=== PATIENT | female | born 1945 | race Caucasian/White ===

== ENCOUNTER 2024-08-01 20:02 | Inpatient (IN) | payer MEDICARE, BC ==
[~2024-08-01] VITALS: Ht 167.6 cm; Wt 58.1 kg
[~2024-08-01 20:02] MED LIST: CALC-1026 PO
[2024-08-01] MEDS ORDERED: PIPERACI/TAZO 3.375GM/D5W 50ML PB IV ONE (20:39)
[2024-08-01] MEDS ORDERED: VANCOMYCIN 1 GM /D5W 250 ML PB IV ONE (20:39)
[2024-08-01] MEDS ORDERED: AZITHROMYCIN 500 MG VIAL ONE (20:39)
[2024-08-01] MEDS: IV NS 0.9% 1,000 ML BAG IV ONE (20:50)
[2024-08-01] MEDS: PIPERACILLIN /TAZOBACTAM 3.375 G in IV D5W 50 ML IV ONE (20:51)
[2024-08-01 20:53] LABS: BASOPHILS # (AUTO) 0.1 K/uL (0.0-0.2); BASOPHILS % (AUTO) 0.3 % (0.0-2.0); EOSINOPHILS % (AUTO) 0.1 % (0.0-6.0); HEMATOCRIT 32 % (33-45); HEMOGLOBIN 10.4 g/dL (11.5-14.8); LYMPHOCYTES # (AUTO) 0.4 K/uL (0.8-4.8); LYMPHOCYTES % (AUTO) 1.7 % (20.0-44.0); MEAN CORPUSCULAR HEMOGLOBIN 30 PG (26.0-33.0); MEAN CORPUSCULAR HGB CONC 32 g/dl (31.0-36.0); MEAN CORPUSCULAR VOLUME 94 fL (82-100); MONOCYTES % (AUTO) 4.1 % (2.0-12.0); NEUTROPHILS # (AUTO) 22.7 K/uL (1.8-8.9); NEUTROPHILS % (AUTO) 93.8 % (43.0-81.0); PLATELET COUNT (AUTO) 715 K/uL (150-450); RED BLOOD CELL COUNT(AUTO) 3.42 MIL/uL (4.0-5.2); RED CELL DISTRIBUTION WIDTH 17.9 % (11.5-15.0); WHITE BLOOD COUNT (AUTO) 24.2 K/uL (4.3-11.0)
[2024-08-01 21:06] LABS: INR 1.32 (0.91-1.10); PARTIAL THROMBOPLASTIN TIME 37.9 SEC (24.3-34.3); PROTHROMBIN TIME 13.7 SECS (9.2-11.1)
[2024-08-01 21:10] LABS: ALANINE AMINOTRANSFERASE 22 U/L (12-78); ALBUMIN 1.6 g/dL (3.4-5.0); ALKALINE PHOSPHATASE 96 U/L (46-116); ASPARTATE AMINOTRANSFERASE 24 U/L (15-37); BILIRUBIN,DIRECT 0.1 mg/dL (0.0-0.2); BILIRUBIN,TOTAL 0.3 mg/dL (0.2-1.0); CARBON DIOXIDE 26 mmol/L (21-32); CHLORIDE 103 mmol/L (98-107); CREATININE 1.1 mg/dL (0.6-1.3); GLUCOSE 168 mg/dL (74-106); POTASSIUM 3.9 mmol/L (3.5-5.1); SODIUM SERUM 138 mmol/L (136-145); TOTAL PROTEIN, SERUM 4.9 g/dL (6.4-8.2); UREA NITROGEN, BLOOD 24 mg/dL (7-18)
[2024-08-01] MEDS: AZITHROMYCIN 500 MG in IV D5W 250 ML IV ONE (21:11)
[2024-08-01 21:14] LABS: LACTIC ACID 3.3 mmol/L (0.4-2.0)
[2024-08-01] MEDS ORDERED: ACETAMINOPHEN 325 MG TABLET PO PRN (22:00)
[2024-08-01] MEDS ORDERED: ACETAMINOPHEN 650 MG/SUPP.RECT RC PRN (22:00)
[2024-08-01] MEDS ORDERED: Z GUARD REMEDY 4 OZ OINT TP PRN (22:00)
[2024-08-01] MEDS ORDERED: ONDANSETRON HCL/PF 4 MG/2 ML VIAL IVP PRN (22:00)
[2024-08-01] MEDS ORDERED: MAG HYDROX/AL HYDROX/SIMETH 30 ML UDC PO PRN (22:00)
[2024-08-01] MEDS: VANCOMYCIN 1 GM in IV D5W 250 ML IV ONE (22:15)
[2024-08-01] MEDS ORDERED: PIPERACILLIN /TAZOBACTAM 3.375 G in IV NS 0.9% 50 ML IV ONE (23:00)
[2024-08-01 23:10] LABS: APPEARANCE,URINE SLIGHTLY CLOUDY (CLEAR); BILIRUBIN,URINE NEGATIVE (NEGATIVE); BLOOD, URINE TRACE-INTA Ery/uL (NEGATIVE); COLOR,URINE YELLOW (YELLOW); KETONES,URINE NEGATIVE (NEGATIVE); LEUKOCYTE ESTERASE ,URINE 1+ (NEGATIVE); NITRITE, URINE NEGATIVE (NEGATIVE); PROTEIN,URINE NEGATIVE (NEGATIVE); UGLUCOSE NEGATIVE (NEGATIVE); UROBILINOGEN,URINE 0.2 EU/dL (0.2)
[2024-08-01 23:43] LABS: ADD URINE CULTURE YES; BACTERIA,URINE Moderate /HPF (None Seen); RBC,URINE 0-2 /HPF (0-2); SQUAMOUS EPITHELIAL CELL,UR Moderate /HPF (None Seen); WBC,URINE 21-50 /HPF (0-3)
[2024-08-02] VITALS (7 sets, daily range): BP systolic 91–116; BP diastolic 44–57; TEMP 97–99.1; O2SAT 93–100
[2024-08-02] MEDS: IV LR 1000 ML 1,000 ML IV PRN (01:26)
[2024-08-02] MEDS: TRAZODONE 50 MG TABLET PO PRN (01:37)
[2024-08-02] MEDS: ZOLPIDEM TARTRATE 5 MG TABLET PO ONE (02:03)
[2024-08-02] MEDS: TEMAZEPAM 15 MG CAPSULE PO ONE (02:03)
[2024-08-02] MEDS ORDERED: PIPERACI/TAZO 3.375GM/D5W 50ML PB IV ONE (05:08)
[2024-08-02] MEDS: ZOSYN IVPB 3.375 G in IV D5W 50ml IV ONE (05:13)
[2024-08-02] MEDS: PANTOPRAZOLE 40 MG TABLET.DR PO SCH (07:30)
[2024-08-02 07:55] LABS: CALCIUM, SERUM 7.1 mg/dL (8.5-10.1); CREATININE 0.6 mg/dL (0.6-1.3); PHOSPHORUS 3.5 mg/dL (2.5-4.9); POTASSIUM 3.2 mmol/L (3.5-5.1)
[2024-08-02 08:10] LABS: THYROID STIMULATING HORMONE 1.19 uIU/mL (0.358-3.74)
[2024-08-02] MEDS ORDERED: POLY17PO4 PO (08:38)
[2024-08-02] MEDS ORDERED: ASPI-1169 PO (08:38)
[2024-08-02] MEDS ORDERED: DOXE10CA PO (08:38)
[2024-08-02] MEDS ORDERED: LIDO1ADH82 TP (08:38)
[2024-08-02] MEDS ORDERED: [UNRECOGNIZED DRUG - OTHER] TP (08:38)
[2024-08-02] MEDS ORDERED: ONDA4TAB11 PO (08:38)
[2024-08-02] MEDS ORDERED: SENN-261 PO (08:38)
[2024-08-02] MEDS ORDERED: MULT-447 PO (08:38)
[2024-08-02] MEDS ORDERED: ESZO1TAB11 PO (08:38)
[2024-08-02] MEDS ORDERED: ACET-868 PO (08:38)
[2024-08-02] MEDS ORDERED: TRAZ150T75 PO (08:38)
[2024-08-02] MEDS ORDERED: MELA5TAB PO (08:38)
[2024-08-02] MEDS ORDERED: L. A1TAB10 PO (08:38)
[2024-08-02] MEDS ORDERED: METH-647 PO (08:38)
[2024-08-02] MEDS ORDERED: PRUC1TAB PO (08:38)
[2024-08-02] MEDS ORDERED: SIME80TA15 PO (08:38)
[2024-08-02] MEDS ORDERED: LEVO25TA7 PO (08:38)
[2024-08-02 08:57] LABS: MAGNESIUM 1.2 mg/dL (1.8-2.4)
[2024-08-02 10:49] LABS: BASOPHILS % (AUTO) 0.1 % (0.0-2.0); EOSINOPHILS # (AUTO) 0.1 K/uL (0.0-0.7); EOSINOPHILS % (AUTO) 0.7 % (0.0-6.0); HEMATOCRIT 26 % (33-45); HEMOGLOBIN 8.4 g/dL (11.5-14.8); LYMPHOCYTES # (AUTO) 1.8 K/uL (0.8-4.8); LYMPHOCYTES % (AUTO) 10.4 % (20.0-44.0); MEAN CORPUSCULAR HEMOGLOBIN 32 PG (26.0-33.0); MEAN CORPUSCULAR HGB CONC 32 g/dl (31.0-36.0); MEAN CORPUSCULAR VOLUME 99 fL (82-100); MONOCYTES % (AUTO) 5.9 % (2.0-12.0); NEUTROPHILS # (AUTO) 14.6 K/uL (1.8-8.9); NEUTROPHILS % (AUTO) 82.9 % (43.0-81.0); PLATELET COUNT (AUTO) 450 K/uL (150-450); RED BLOOD CELL COUNT(AUTO) 2.66 MIL/uL (4.0-5.2); RED CELL DISTRIBUTION WIDTH 18.4 % (11.5-15.0); WHITE BLOOD COUNT (AUTO) 17.6 K/uL (4.3-11.0)
[2024-08-02] MEDS: POTASSIUM CHLORIDE 20 MEQ TAB.PRT.SR PO SCH (10:56)
[2024-08-02] MEDS: MAGNESIUM OXIDE 400 MG TABLET PO SCH (11:21)
[2024-08-02] MEDS: ZOSYN IVPB 3.375 G in IV D5W 50ml IV SCH (11:22)
[2024-08-02] MEDS: ENOXAPARIN SODIUM 40 MG/0.4 ML DISP.SYRIN SQ SCH (11:24)
[2024-08-02] MEDS: CALCIUM CARBONATE 500 MG TAB.CHEW PO PRN (16:42)
[2024-08-02] MEDS: SIMETHICONE 80 MG TAB.CHEW PO SCH (19:14)
[2024-08-02] MEDS ORDERED: VANCOMYCIN 750 MG in IV D5W 250 ML IV SCH (22:00)
[2024-08-02] MEDS: VANCOMYCIN 1 GM in IV D5W 250ml IV SCH (22:23)
[2024-08-03] VITALS: BP 108/52; TEMP 98.1; O2SAT 97
[2024-08-03 04:00] VITALS: BP 103/52; TEMP 98.1; O2SAT 93
[2024-08-03 08:00] VITALS: BP 99/56; TEMP 98.2; O2SAT 96
[2024-08-03] MEDS ORDERED: ONDANSETRON 4 MG TAB.RAPDIS PO PRN (08:00)
[2024-08-03] MEDS ORDERED: METHOCARBAMOL (500MG) 500 MG TABLET PO PRN (08:00)
[2024-08-03] MEDS ORDERED: SENNOSIDES 8.6 MG TABLET PO PRN (08:00)
[2024-08-03] MEDS ORDERED: ACETAMINOPHEN 325 MG TABLET PO PRN (08:00)
[2024-08-03] MEDS ORDERED: PRUCALOPRIDE SUCCINATE 1 MG PO SCH (09:00)
[2024-08-03] MEDS ORDERED: ZOLPIDEM TARTRATE 5 MG TABLET PO PRN (09:00)
[2024-08-03] MEDS: MULTIVIT W/MINERALS 1 TAB TABLET PO SCH (09:35)
[2024-08-03] MEDS: ACIDOPHILUS/BULGARICUS 1 EACH TAB.CHEW PO SCH (09:35)
[2024-08-03] MEDS: POLYETHYLENE GLYCOL 3350 17 GM POWD.PACK PO PRN (09:35)
[2024-08-03] MEDS: SIMETHICONE 80 MG TAB.CHEW PO SCH (09:36)
[2024-08-03] MEDS: ASPIRIN 81 MG TAB.CHEW PO SCH (09:36)
[2024-08-03 12:00] VITALS: BP 103/60; TEMP 98.1; O2SAT 96
[2024-08-03] MEDS: LIDOCAINE 5% (PATCH) 1 EA PATCH TP SCH (13:07)
[2024-08-03] MEDS: MAGNESIUM HYDROXIDE 30 ML UDC PO PRN (13:19)
[2024-08-03 16:00] VITALS: BP 102/59; TEMP 97.9; O2SAT 98
[2024-08-03 16:09] LABS: CALCIUM, SERUM 7.5 mg/dL (8.5-10.1); CREATININE 0.8 mg/dL (0.6-1.3); POTASSIUM 3.4 mmol/L (3.5-5.1)
[2024-08-03 16:13] LABS: MAGNESIUM 1.2 mg/dL (1.8-2.4)
[2024-08-03] MEDS: POTASSIUM CHLORIDE 20 MEQ TAB.PRT.SR PO ONE (17:08)
[2024-08-03] MEDS: MAGNESIUM OXIDE 400 MG TABLET PO SCH (17:08)
[2024-08-03 20:00] VITALS: BP 110/56; TEMP 97.7; O2SAT 97
[2024-08-03] MEDS: DOXEPIN HCL (25 MG) 25 MG CAPSULE PO SCH (21:29)
[2024-08-03] MEDS: DOXEPIN HCL 10 MG CAPSULE PO SCH (21:30)
[2024-08-03] MEDS: TRAZODONE 50 MG TABLET PO SCH (21:30)
[2024-08-03] MEDS ORDERED: Medication Not On Formulary EA (Melatonin 10 MG) PO SCH (22:00)
[2024-08-04] VITALS: BP 101/52; TEMP 98.1; O2SAT 96
[2024-08-04 04:00] VITALS: BP 117/54; TEMP 97.7; O2SAT 97
[2024-08-04 08:00] VITALS: BP 112/61; TEMP 97.9; TEMP 98.1; O2SAT 94; O2SAT 99
[2024-08-04] MEDS: LEVOTHYROXINE SODIUM 25 MCG TABLET PO SCH (09:00)
[2024-08-04] MEDS: AMOX/CLAVULANATE 875 MG TABLET PO SCH (12:03)
[2024-08-04] MEDS ORDERED: AMOX1TAB16 PO (14:56)
== END 2024-08-04 17:54 | disposition home health service (06) | DRG 871 ==
LOC: ER 20:09 → TELE1 22:26 → MEDSG1 08-04 11:16
PROVIDERS: ADMIT Nurse Practitioner Acute Care; ATTEND Student in an Organized Health Care Education/Training Program
PROC: 0H9KXZZ Drainage of Right Lower Leg Skin, External Approach (ICD-10-PCS; principal; 2024-08-03)
DX: A41.9 Sepsis, unspecified organism (principal); J15.9 Unspecified bacterial pneumonia; E46 Unspecified protein-calorie malnutrition; E87.20 Acidosis, unspecified; R65.20 Severe sepsis without septic shock; E86.0 Dehydration; E88.09 Other disorders of plasma-protein metabolism, not elsewhere classified; D63.8 Anemia in other chronic diseases classified elsewhere; D75.839 Thrombocytosis, unspecified; F32.A Depression, unspecified; G47.00 Insomnia, unspecified; Z85.3 Personal history of malignant neoplasm of breast; Z90.11 Acquired absence of right breast and nipple; R73.9 Hyperglycemia, unspecified; R53.1 Weakness; Z87.440 Personal history of urinary (tract) infections; E77.8 Other disorders of glycoprotein metabolism; Z20.822 Contact with and (suspected) exposure to COVID-19; S81.812A Laceration without foreign body, left lower leg, initial encounter; S81.811A Laceration without foreign body, right lower leg, initial encounter; X58.XXXA Exposure to other specified factors, initial encounter; Y93.9 Activity, unspecified; Y92.009 Unspecified place in unspecified non-institutional (private) residence as the place of occurrence of the external cause; S80.821A Blister (nonthermal), right lower leg, initial encounter; Z68.20 Body mass index [BMI] 20.0-20.9, adult
CPT/HCPCS: 36415; 71045-TC; 80048-TC; 80076-TC; 81001; 83605-TC; 83690-TC; 83735-TC; 84100-TC; 84443-TC; 84484-TC; 85025-TC; 85730-TC; 87040-TC; 87086-TC; 93307-TC; 93970-TC; 93971-TC; 97110-TC; 97116-TC; 97530-TC; 97535-TC; A4223; A6253; A6403; G0378; J0456; J1650; J2543; J3370; J3371; J7030; J7050; J7060; J7120